=== PATIENT | female | born 1960 | race African-American/Black ===

== ENCOUNTER 2021-11-29 11:31 | Emergency (ER) | payer OTHER ==
[~2021-11-29] VITALS: Ht 160 cm; Wt 97.2 kg
[2021-11-29] MEDS ORDERED: METFORMIN HCL1000 MG PO (13:14)
[2021-11-29] MEDS ORDERED: AMLODIPINE XX (13:14)
[2021-11-29] MEDS ORDERED: LEVOTHYROXIN75 MCG PO (13:15)
[2021-11-29] MEDS ORDERED: MECLIZINE25 MG PO (13:15)
[2021-11-29] MEDS ORDERED: FUROSEMIDE20 MG PO (13:15)
[2021-11-29] MEDS ORDERED: COPD MED (13:15)
[2021-11-29] MEDS ORDERED: LEVAMIR (13:16)
[2021-11-29] MEDS ORDERED: FLEXERIL5 M1 PO (13:54)
[2021-11-29 14:19] VITALS: BP 138/87
== END 2021-11-29 14:38 | disposition home or self-care (01) | DRG 552 ==
LOC: ED 11:31
DX: S16.1XXA Strain of muscle, fascia and tendon at neck level, initial encounter (principal); V43.02XA Car driver injured in collision with other type car in nontraffic accident, initial encounter